=== PATIENT | female | born 1975 | race Caucasian/White ===

== ENCOUNTER 2024-08-08 06:24 | Day surgery (SDC) | payer OTHER, SELFPAY | END 2024-08-08 13:31 | disposition home or self-care (01) | LOC: GI 06:24 | PROVIDERS: ATTENDING PHYSICIAN Internal Medicine | DX: Z12.11 Encounter for screening for malignant neoplasm of colon (principal); Z86.0101 Personal history of adenomatous and serrated colon polyps; K64.9 Unspecified hemorrhoids; D12.2 Benign neoplasm of ascending colon | CPT/HCPCS: 45385; 88305 ==